=== PATIENT | female | born 1995 | race Caucasian/White ===

== ENCOUNTER 2016-08-13 15:36 | Emergency (ER) | payer BC, OTHER ==
[~2016-08-13] VITALS: Ht 157.5 cm; Wt 58.2 kg
[~2016-08-13 15:36] MED LIST: DULO-24 PO
[2016-08-13 15:42] VITALS: TEMP 37; Ht 157.5 cm; Wt 58.2 kg
[2016-08-13] MEDS ORDERED: OXYCODONE HCL IR 5 MG TAB (IMMEDIATE RELEASE) PO STA (16:07)
[2016-08-13] MEDS ORDERED: AMOX875T PO (16:09)
--- NOTE | 2016-08-13 16:11 | EMERGENCY ROOM VISIT NOTE ---
ED Visit Note First contact with patient: 15:52 CHIEF COMPLAINT: "Left side mouth hurts very badly" HISTORY OF PRESENT ILLNESS: This 21 year old female patient presented to the emergency department via private vehicle with a progressive toothache for past 2 weeks. The patient believes it is coming from the left posterior inferior molar. The pain is now steady and severe and radiates to the left ear. Patient has yet to find a dentist that accepts her insurance in the area. They rate their pain a 7/10 and the iTylenol they have been taking has not relieved the pain. She notes minimal left-sided facial swelling which has diminished. She denies any nausea, vomiting, fevers, chills. The patient denies any discharge from the mouth. REVIEW OF SYSTEMS: A 6 system review of systems was completed with positives and pertinent negatives listed in the HPI. ALLERGIES: Morphine, tramadol MEDICATIONS: As noted below PMH: Cyst SOCIAL HISTORY: Patient lives at home with parents, denies alcohol and tobacco use. PHYSICAL EXAM: Vitals are noted on the nurse's note and reviewed by myself. Vital signs stable. Temperature 37C orally. GENERAL: 21-year-old female, in no acute distress, nondiaphoretic, well-developed well-nourished. Mouth: The left posterior inferior molar tooth is very carious and the gum is swollen and tender around it, without any discharge or signs of an abscess. The remainder of the pharynx and tonsils are without erythema, edema, or exudate. The airway is patent. There is slight edema of the face at the midportion of the left mandible. This is very slight. There is no cervical or submandibular lymphadenopathy. The patient appears uncomfortable and in pain. The patient has overall poor dental hygiene. EARS: External auditory canals clear, tympanic membranes pearly nichols without erythema or effusion bilaterally. ED COURSE: Patient was seen and evaluated as above. After obtaining a thorough history and physical examination and appears that the patient does have poor dentition, with evidence of prior extraction. There is no evidence of Leonides angina, sepsis, cellulitis or eye involvement. Patient is healthy in appearance. She'll be placed upon Augmentin for 10 days for the suspected dental infection as well as a short-term prescription for OxyIR given her allergies. She states that she has had Percocet in the past however I'm concerned giving her this she also takes Tylenol. She was provided the number for a local dentist who will likely participate with her insurance. She was educated upon worrisome symptoms in which to return as well as management of these findings. She had questions answered prior to discharge and was discharged home in good condition. She was given one tablet here of OxyIR for her pain. She was not driving. In the evaluation and treatment of this patient, the following differential diagnoses were considered: Periapical Abscess, Osteonecrosis of the Jaw, Dental Fracture, Dental Caries, Leonides's Angina, Vincent's Angina, Facial Cellulitis. In the treatment of this patient controlled medication was utilized and therefore the [facility], Prescription Drug Monitoring Program website was utilized to look up this patient. No concerns were identified that would prohibit or alter my treatment decision. Current/Historical Medications Scheduled Amoxicillin & Pot Clavulanate (Augmentin 875-125 mg), 1 TAB PO BID Duloxetine HCl (Cymbalta), 10 MG PO DAILY Medroxyprogesterone Acetate (C (Depo-Provera Contraceptiv), 1 DOSE INJ 3 MONTHS Scheduled PRN Acetaminophen (Tylenol), 1,000 MG PO DIRECTED PRN for Pain Oxycodone Ir (Roxicodone Ir), 1-2 TAB PO Q4H PRN for Pain Allergies Coded Allergies: Tramadol (Unverified Allergy, Unknown, VOMITING, 08/13/16) Morphine (Verified Adverse Reaction, Unknown, vomiting, 08/13/16) Vital Signs Date Time Temp Pulse Resp B/P Pulse Ox O2 Delivery O2 Flow Rate FiO2 08/13/16 16:24 86 16 116/73 100 Room Air 08/13/16 15:42 37.0 96 18 132/73 99 Room Air Medications Administered Medications (Trade) Dose Ordered Sig/Mayr Route Start Time Stop Time Status Last Admin Dose Admin Oxycodone HCl (Roxicodone Immediate Rel Tab) 5 mg NOW STAT PO 08/13/16 16:07 08/13/16 16:08 DC 08/13/16 16:24 5 MG Departure Information Impression Primary Impression: Odontalgia Dispostion Home / Self-Care Condition GOOD Prescriptions Oxycodone Ir (Roxicodone Ir) 5 Mg Tab 1-2 TAB PO Q4H Y for Pain, #15 TAB For Initial Treatment Prov: BamatKorey PA-C 08/13/16 Amoxicillin & Pot Clavulanate (Augmentin 875-125 mg) 1 Tab Tab 1 TAB PO BID for 10 Days, #20 TAB Prov: Korey Pack PA-C 08/13/16 Referrals Delio Meza D.O. (PCP) Patient Instructions My [facility] Additional Instructions You have been treated in the Emergency Department for Dental Pain. You have received pain medicine in the emergency department which impairs your ability to operate a vehicle. It is illegal for you to drive after receiving these medicines. You have been prescribed Oxy IR to be used for pain control. This is a narcotic medication. You cannot drive or consume alcohol while on this medicine. This medicine should only be used for pain that cannot be controlled with over-the- counter pain medicines. You were prescribed Augmentin to be taken Twice daily. This is an antibiotic. All antibiotics have the potential to cause diarrhea. Stop this medication and contact a medical provider if you were to develop any significant adverse side effects including: wheezing, shortness of breath, passing out, vomiting, or a diffuse rash. Always take antibiotics as directed and COMPLETE the ENTIRE course regardless of the improvement of your symptoms. For pain control, you can use the following [id number] medicines (if >12 yo): - Regular strength (325mg/tab) Tylenol (acetaminophen) 2 tabs every 4-6 hours as needed. Do not exceed 12 tablets in a 24 hour period. Avoid taking more than 3 grams (3000 mg) of Tylenol per day. This includes any other sources of acetaminophen you may take on a regular basis. - Regular strength (200 mg/tab) Advil (ibuprofen) 1-2 tabs every 4-6 hours as needed. Do not exceed a dose of 3200 mg per day. Refrain from smoking cigarettes or using chewing tobacco until you have been evaluated by your dentist. Keeping beverages lukewarm and consuming soft foods can decrease your pain. Warm compresses over the affected area may offer some relief. You MUST seek evaluation of your dental pain by a dentist following your visit to the Emergency Department. The Emergency Department is not capable of treating dental issues long-term. You should call your dentist as soon as possible to make an appointment for evaluation of your dental pain. As we discussed here is the phone number for the local dentist: office phone number is [phone] and we are located at [address] [place] [address] , [address], [place]. Dr. Geo Conroy, [facility] Return to the emergency department if you develop the following symptoms despite treatment course outlined above: fever, intractable pain, increased redness, swelling, or purulent discharge. Please return to the emergency department with any new/concerning symptoms.
[2016-08-13 16:24] VITALS: BP 116/73; PULSE 86; O2SAT 100
[2016-08-13] MEDS ORDERED: OXYC1TAB3 PO (17:19)
[2016-10-03] MEDS ORDERED: MEDR150I INJ (16:29)
== END 2016-08-13 16:29 | disposition home or self-care (01) ==
LOC: C.EDB 15:38 → C.EDD 16:29
DX: K08.89 Other specified disorders of teeth and supporting structures (principal); Z79.899 Other long term (current) drug therapy; Z88.5 Allergy status to narcotic agent; Z88.8 Allergy status to other drugs, medicaments and biological substances

== ENCOUNTER 2016-10-03 19:51 | Emergency (ER) | payer BC, OTHER ==
[~2016-10-03] VITALS: Ht 157.5 cm; Wt 57.0 kg
[~2016-10-03 19:51] MED LIST changes: +MEDR150I INJ; +OXYC1TAB3 PO
[2016-10-03 19:58] VITALS: BP 121/77; PULSE 92; TEMP 37.3; O2SAT 100; Ht 157.5 cm; Wt 57.0 kg
[2016-10-03] MEDS ORDERED: ACET-1256 PO (21:06)
--- NOTE | 2016-10-03 21:31 | DIAGNOSTIC IMAGING REPORT ---
RIGHT TIBIA AND FIBULA 2 VIEWS CLINICAL HISTORY: Fall with right leg pain. FINDINGS: AP and lateral views of the right tibia and fibula are obtained. No prior studies are available for comparison at the time of dictation. The skeletal structures are well mineralized. No fracture is seen. The knee and ankle joints are grossly maintained. The Overlying soft tissues are within normal limits. IMPRESSION: Unremarkable radiographic assessment of the right tibia and fibula. Electronically signed by: Bunny Alvarez M.D. 10/03/2016 9:30 PM Dictated Date/Time: 10/03/2016 9:29 PM
--- NOTE | 2016-10-03 22:21 | EMERGENCY ROOM VISIT NOTE ---
ED Visit Note First contact with patient: 20:39 CHIEF COMPLAINT: Right lower leg injury yesterday HISTORY OF PRESENT ILLNESS: Patient is an otherwise healthy 21-year-old white female who presents to the emergency department for evaluation of a right lower leg injury that she sustained yesterday. She was carrying boxes while wearing flip-flop sandals, slipped and twisted the right lower leg. Initially, she thought the injury was to her ankle, but as the day has gone on she has noted more pain in the mid right calf. She took Tylenol and applied ice which did help with the swelling. She denies any knee or ankle pain presently. She rates her pain a 7/10. REVIEW OF SYSTEMS: Review of systems as per HPI. All other systems reviewed were negative. At least 6 systems reviewed. PMH: Electronic medical records are reviewed and summarized as above/below. See Problem List. SOCIAL HISTORY: Patient lives at home with her son in [place], [place] (3 hours from [place]). She reports that she is here visiting her boyfriend who lives locally. Smoker. PHYSICAL EXAM: Vital Signs: Reviewed Nurse's notes. MENTAL STATUS: Well- appearing 21-year-old white female who is awake and alert and seated in a wheelchair in no acute distress. MUSCULOSKELETAL: The right knee and ankle are normal to inspection and there is no swelling or tenderness of either. Knee and ankle range of motion are full. Examination of the calf does not show any obvious soft tissue swelling. No hematoma. She is tender to palpation in the mid calf region, no palpable defect. There is no pain or deformity over the Achilles tendon. Distal pulses are easily palpable. There is no deformity or fracture crepitus. EMERGENCY DEPARTMENT COURSE: X-ray of the tibia/fibula does not show any fractures. The patient's mechanism of injury is consistent with a calf strain. Differential diagnoses also entertained included fracture, interosseous injury , Achilles strain versus tear, among others. The patient was wrapped with an domo wrap and issued crutches. Conservative care measures were discussed. It was not felt that narcotics were indicated for this mechanism of injury. She was encouraged to use Tylenol and ibuprofen. Follow-up with her family doctor when she returns home if her symptoms are not improving. RIGHT TIBIA AND FIBULA 2 VIEWS CLINICAL HISTORY: Fall with right leg pain. FINDINGS: AP and lateral views of the right tibia and fibula are obtained. No prior studies are available for comparison at the time of dictation. The skeletal structures are well mineralized. No fracture is seen. The knee and ankle joints are grossly maintained. The Overlying soft tissues are within normal limits. IMPRESSION: Unremarkable radiographic assessment of the right tibia and fibula. Problem List Medical Problems: (1) Abdominal pain Status: Resolved (2) Diarrhea Status: Resolved (3) Low back pain Status: Resolved (4) Odontalgia Status: Resolved Current/Historical Medications Scheduled Medroxyprogesterone Acetate (C (Depo-Provera Contraceptiv), 1 DOSE INJ 3 MONTHS Scheduled PRN Acetaminophen (Tylenol), 1,000 MG PO DIRECTED PRN for Pain Allergies Coded Allergies: Tramadol (Unverified Allergy, Unknown, VOMITING, 08/13/16) Morphine (Verified Adverse Reaction, Unknown, vomiting, 08/13/16) Vital Signs Date Time Temp Pulse Resp B/P Pulse Ox O2 Delivery O2 Flow Rate FiO2 10/03/16 19:58 37.3 92 18 121/77 100 Room Air Departure Information Impression Primary Impression: Strain of calf muscle Referrals No Doctor, Assigned (PCP) Patient Instructions My [facility] Additional Instructions Ibuprofen(Motrin, Advil) may be used for fever or pain. Use 600mg every six hours as needed. Take with food. Avoid using more than 2400mg in a 24 hour period. Do not use 2400mg per day for more than three consecutive days without physician direction. Prolonged inappropriate use can lead to stomach upset or ulcers. This medication can be taken if you need to drive, work, or perform activities which may be dangerous when taking narcotic pain medication. (AND/OR) Acetaminophen(Tylenol) may be used for fever or pain. Use 1000mg every six hours as needed. Avoid using more than 3000mg in a 24 hour period. This medication can be taken if you need to drive, work, or perform activities which may be dangerous when taking narcotic pain medication. Ice compresses for 20 minutes at a time four times daily for 2-3 days. Use the Domo wrap and crutches as instructed. Rest and elevate your injury. Continue current medications. Return to the ER immediately for any numbness, tingling, severe pain, extreme swelling in the extremity or as needed. Follow-up with your primary care physician when you return home if your symptoms are not improving in the next 5-7 days.
== END 2016-10-03 22:40 | disposition home or self-care (01) ==
LOC: C.EDB 19:52 → C.EDD 22:40
DX: S86.901A Unspecified injury of unspecified muscle(s) and tendon(s) at lower leg level, right leg, initial encounter (principal); X58.XXXA Exposure to other specified factors, initial encounter; Z88.5 Allergy status to narcotic agent; Z88.8 Allergy status to other drugs, medicaments and biological substances